=== PATIENT | female | born 1995 | race Caucasian/White ===

== ENCOUNTER 2017-11-29 20:04 | Emergency (ER) | payer OTHER ==
[2017-11-29 20:18] VITALS: BP 139/92; PULSE 106; TEMP 99.2; BMI 28.3
--- NOTE | 2017-11-29 20:20 | PDOC ---
Rapid Medical Evaluation Chief Complaint: Laceration Time Seen by Provider: 11/29/17 20:16 Medical Evaluation: 11/29/17 20:16 This patient had a brief in-person evaluation by me The patient has a chief complaint of: laceration to right lower leg. Patient reports injury while trying to climb the fence. Unknown tetanus status. LMP one week ago The pertinent physical findings are: NAD even and unlabored breathing right leg with laceration on lateral side The following orders have been placed: urine , tetanus vaccine This patient will proceed to the ED for further evaluation.
[2017-11-29] MEDS ORDERED: DIPHTH,PERTUSS(ACELL),TET 0.5 ML DISP.SYRIN IM ONE (20:21)
[2017-11-29] MEDS ORDERED: LIDOCAINE HCL 1%, 10 MG/ML (50 mL VIAL) SQ ONE (20:52)
--- NOTE | 2017-11-29 21:18 | PDOC ---
History of Present Illness - General Chief Complaint: Laceration Stated Complaint: LACERATION Time Seen by Provider: 11/29/17 20:16 - History of Present Illness Initial Comments: 21-year-old female without comorbidities presents for evaluation of a laceration on her right leg. She states she was running and scraped her leg on a fence. No loss consciousness 11/29/17 21:16 Past History - Past Medical History Allergies/Adverse Reactions: Allergies Allergy/AdvReac Type Severity Reaction Status Date / Time No Known Allergies Allergy Verified 11/29/17 20:20 Home Medications: Ambulatory Orders NK [No Known Home Medication] 11/29/17 COPD: No - Suicide/Smoking/Psychosocial Hx Smoking History: Never smoked Have you smoked in the past 12 months: No Information on smoking cessation initiated: No Hx Alcohol Use: Yes (social) Drug/Substance Use Hx: No Substance Use Type: None Review of Systems - Review of Systems Integumentary: Yes: See HPI All Other Systems: Reviewed and Negative *Physical Exam - Vital Signs Last Vital Signs Temp Pulse Resp BP Pulse Ox 99.2 F 106 H 18 139/92 100 11/29/17 20:16 11/29/17 20:16 11/29/17 20:16 11/29/17 20:16 11/29/17 20:16 - Physical Exam Comments: Is a 9 cm laceration exposing subcutaneous fat on the lateral aspect of the right leg extending above the knee to below the knee. The thigh and calf are soft and nontender. There are no gross sensorimotor deficits. She is neurovascularly intact. 11/29/17 21:16 ED Treatment Course - ADDITIONAL ORDERS Additional order review: Laboratory Results 11/29/17 20:46 Urine HCG, Qual Negative - Medications Given in the ED: ED Medications Discontinued Medications Generic Name Dose Route Start Last Admin Trade Name Freq PRN Reason Stop Dose Admin Lidocaine HCl 10 ml 11/29/17 20:52 11/29/17 21:00 Xylocaine 1% SQ 11/29/17 20:53 10 ml ONCE ONE Administration Medical Decision Making - Medical Decision Making 9 cm incision was closed with 12 simple interrupted 3-0 nylon sutures. The wound was aseptically prepped anesthetized with 15 mL of 1% lidocaine without epinephrine copiously irrigated, explored to its base in a bloodless field without any identification of foreign body and then repeat irrigation was done. Fascia was exposed as well as subcutaneous fat. There was no violation of the fascia the fascia was well-preserved 11/29/17 21:14 *DC/Admit/Observation/Transfer Diagnosis at time of Disposition: Laceration - Discharge Dispostion Disposition: HOME Condition at time of disposition: Stable Decision to Admit order: No - Referrals Referrals: Sweta Thomas [Primary Care Provider] - Lázaro Napoles MD [Staff Physician] - - Patient Instructions Printed Discharge Instructions: DI for Laceration Repair Additional Instructions: Follow-up with orthopedic surgery in 1-2 days for further evaluation treatment options and wound management. Return to the emergency room should he develop any pain redness swelling or drainage from the wound. Keep the wound covered for the next 48 hours. After 48 hours may wash with soap and water and leave the area open to air. If there is drainage or if you need to work he may cover it with a dry sterile dressing. You may return to the emergency room in 10 days for suture removal - Post Discharge Activity
== END 2017-11-29 21:27 | disposition home or self-care (01) ==
LOC: JERFT 20:04
PROC: 0HQKXZZ Repair Right Lower Leg Skin, External Approach (ICD-10-PCS; principal; 2017-11-29)
DX: S81.811A Laceration without foreign body, right lower leg, initial encounter (principal); W26.8XXA Contact with other sharp object(s), not elsewhere classified, initial encounter; Y93.02 Activity, running; Y92.488 Other paved roadways as the place of occurrence of the external cause
CPT/HCPCS: 12004; 84703; 90715; 99281-25

== ENCOUNTER 2017-12-13 19:16 | Emergency (ER) | payer OTHER ==
[2017-12-13 19:42] VITALS: BP 112/53; PULSE 71; TEMP 98; BMI 29.2
--- NOTE | 2017-12-13 20:37 | PDOC ---
Suture Removal/Wound Check HPI - History of Present Illness Chief Complaint: Suture/Staple Removal(Here) Stated Complaint: Suture/Staple Removal(Here) Time Seen by Provider: 12/13/17 19:56 History Source: Yes: Patient Exam Limitations: Yes: No Limitations Treated at: [facility] ED - Previous ED Treatment Type of procedure performed on last visit: Yes: Laceration Repair Tetanus Immunization: Yes: Up to Date Past History - Travel Traveled outside of the country in the last 30 days: No Close contact w/someone who was outside of country & ill: No - Past Medical History Allergies/Adverse Reactions: Allergies Allergy/AdvReac Type Severity Reaction Status Date / Time No Known Allergies Allergy Verified 12/13/17 19:42 Home Medications: Ambulatory Orders NK [No Known Home Medication] 11/29/17 COPD: No - Suicide/Smoking/Psychosocial Hx Smoking History: Never smoked Have you smoked in the past 12 months: No Hx Alcohol Use: Yes (social) Drug/Substance Use Hx: No Substance Use Type: None Suture Removal/Wound Check PE - Physical Exam Laceration/Wound Check Symptoms: reports: None, Resolved Current Severity Level: None Maximum Severity Level: None Location of Laceration/Wound: right: Leg (12 simple interrupted sutures placed in the R upper extremity) *Review of Systems - Review of Systems Able to Perform ROS?: Yes Constitutional: No: Chills, Fever, Weakness Integumentary: Yes: Other (sutures present). No: Erythema, Pruritus, Rash All Other Systems: Reviewed and Negative *Physical Exam - Vital Signs Last Vital Signs Temp Pulse Resp BP Pulse Ox 98 F 71 18 112/53 L 100 12/13/17 19:39 12/13/17 19:39 12/13/17 19:39 12/13/17 19:39 12/13/17 19:39 - Physical Exam General Appearance: Yes: Nourished, Appropriately Dressed. No: Apparent Distress Extremity: positive: Other (12 simple interrupted sutures present in the R lateral leg) Medical Decision Making - Medical Decision Making 12/13/17 20:53 Patient is a 21-year-old female who does emergency department today for suture removal. Patient was evaluated in our emergency department on for a laceration to her right lateral leg. Suture line is well approximated and intact. No evidence of infection Sutures removed at this time. No complications DC home I discussed the physical exam findings, ancillary test results and final diagnoses with the patient. I answered all of the patient's questions. The patient was satisfied with the care received and felt comfortable with the discharge plan and treatment plan. The Patient agrees to follow up with the primary care physician/specialist within 24-72 hours. Return precautions were given. *DC/Admit/Observation/Transfer Diagnosis at time of Disposition: Visit for suture removal - Discharge Dispostion Disposition: HOME Condition at time of disposition: Stable Decision to Admit order: No - Referrals Referrals: Hugo Otto MD [Staff Physician] - - Patient Instructions Printed Discharge Instructions: DI for Suture Removal Additional Instructions: You had your sutures/brian removed today. Please use bacitracin on the site for the next week. Avoid soaking the area with water for 1 more week as to what the wound fully heal. Follow-up with her primary care doctor as needed Return to the emergency department if you develop fevers, drainage from the site , increased pain, or have any changes in your symptoms. - Post Discharge Activity Forms/Work/School Notes: Back to Work
== END 2017-12-13 20:54 | disposition home or self-care (01) ==
LOC: JERFT 19:16
DX: Z48.817 Encounter for surgical aftercare following surgery on the skin and subcutaneous tissue (principal); Z48.02 Encounter for removal of sutures
CPT/HCPCS: 99281-25

== ENCOUNTER 2024-01-20 15:18 | Emergency (ER) | payer OTHER ==
[2024-01-20 15:31] VITALS: BP 109/69; PULSE 81; RESP 17; TEMP 98.7; BMI 23.2
[2024-01-20] MEDS ORDERED: IBUPROFEN 600 MG TABLET (FP) PO ONE (16:56)
[2024-01-20] MEDS ORDERED: DIPHTH,PERTUSS(ACELL),TET 0.5 ML DISP.SYRIN IM ONE (16:56)
[2024-01-20] MEDS: DIPHTH,PERTUSS(ACELL),TET 0.5 ML DISP.SYRIN IM ONE (17:02)
[2024-01-20] MEDS: IBUPROFEN 600 MG TABLET (FP) PO ONE (17:05)
== END 2024-01-20 18:38 | disposition home or self-care (01) ==
LOC: JERFT 15:18
PROC: 3E0234Z Introduction of Serum, Toxoid and Vaccine into Muscle, Percutaneous Approach (ICD-10-PCS; principal; 2024-01-20)
DX: S60.021A Contusion of right index finger without damage to nail, initial encounter (principal); S80.211A Abrasion, right knee, initial encounter; W01.0XXA Fall on same level from slipping, tripping and stumbling without subsequent striking against object, initial encounter; Z23 Encounter for immunization
CPT/HCPCS: 73140-TC-RT-FY; 90471; 90715; 99284-25